=== PATIENT | male | born 1980 | race Caucasian/White ===

== ENCOUNTER 2023-02-14 09:30 | Inpatient (IN) | payer OTHER ==
[~2023-02-14] VITALS: Ht 165.1 cm; Wt 74.4 kg
[2023-02-14] MEDS ORDERED: OMEPRAZOLE40 MG PO (12:09)
[2023-02-14] MEDS ORDERED: LEVOFLOXACIN750 MG PO (12:09)
[2023-02-14] MEDS ORDERED: LEVSIN/SL0.125 MG SL (12:09)
== END 2023-02-23 12:07 | disposition home or self-care (01) | DRG 330 ==
LOC: EDUNIT# 09:30 → SURG 02-20 05:36 → O/R 02-20 05:36 → SURH 02-20 07:00 → SURG 02-20 15:26
PROVIDERS: ADMIT Colon & Rectal Surgery; ATTEND Colon & Rectal Surgery
PROC: 0DJD8ZZ Inspection of Lower Intestinal Tract, Via Natural or Artificial Opening Endoscopic (ICD-10-PCS; 2023-02-20)
PROC: 0DTE4ZZ Resection of Large Intestine, Percutaneous Endoscopic Approach (ICD-10-PCS; principal; 2023-02-20 07:00)
DX: K57.32 Diverticulitis of large intestine without perforation or abscess without bleeding (principal); K92.1 Melena

== ENCOUNTER → 2023-02-14 | Emergency (ER) | payer OTHER ==
[~2023-02-14] VITALS: Ht 165.1 cm; Wt 72.6 kg
[~2023-02-14] MED LIST: LEVOFLOXACIN750 MG PO; LEVSIN/SL0.125 MG SL; OMEPRAZOLE40 MG PO
== END | disposition home or self-care (01) ==
LOC: ER 09:44
DX: K57.32 Diverticulitis of large intestine without perforation or abscess without bleeding (principal); Z20.822 Contact with and (suspected) exposure to COVID-19